=== PATIENT | female | born 1985 ===

== ENCOUNTER 2023-12-23 06:00 | Outpatient (RCR) | payer OTHER, SELFPAY | END 2023-12-29 23:59 | disposition home or self-care (01) | LOC: SPT 06:00 | PROVIDERS: Visit Provider Emergency Medicine | DX: R10.2 Pelvic and perineal pain (principal) | CPT/HCPCS: 97110; 97140; 97161; 97530 ==

== ENCOUNTER 2023-12-30 06:00 | Outpatient (RCR) | payer OTHER, SELFPAY | END 2024-01-27 23:59 | disposition home or self-care (01) | LOC: SPT 06:00 | PROVIDERS: Visit Provider Emergency Medicine | DX: R10.2 Pelvic and perineal pain (principal) | CPT/HCPCS: 97110; 97140; 97530 ==